=== PATIENT | male | born 1975 | race African-American/Black ===

== ENCOUNTER 2018-03-08 09:54 | Emergency (ER) | payer OTHER ==
[2018-03-08 10:16] VITALS: BP 110/72; PULSE 77; TEMP 98.4; BMI 22.6
--- NOTE | 2018-03-08 10:50 | PDOC ---
History of Present Illness - General Chief Complaint: Ear Problem Stated Complaint: EAR PROBLEM Time Seen by Provider: 03/08/18 10:04 History Source: Patient Exam Limitations: No Limitations - History of Present Illness Initial Comments: 03/08/18 10:50 Patient is here with complaints of stuffiness, and probable impaction to his right ear canal. Suffers from ceruminosis but has not used any medication or sought any attention for irrigation. Denies fever, drainage, no earache sore throat or URI symptoms. Admits to using Q-tips for ear cleaning Timing/Duration: unsure, 1 week Severity: mild, moderate Associated Symptoms: reports: denies symptoms Past History - Travel Traveled outside of the country in the last 30 days: No Close contact w/someone who was outside of country & ill: No - Past Medical History Allergies/Adverse Reactions: Allergies Allergy/AdvReac Type Severity Reaction Status Date / Time No Known Allergies Allergy Verified 03/08/18 10:00 Home Medications: Ambulatory Orders No Home Medications 0 dose .ROUTE UTDICT 06/01/13 COPD: No - Surgical History Abdominal Surgery: Yes (HERNIA) Appendectomy: Yes - Suicide/Smoking/Psychosocial Hx Smoking History: Never smoked Hx Alcohol Use: Yes (SOCIAL) Substance Use Type: None Review of Systems - Review of Systems Able to Perform ROS?: Yes Is the patient limited Tajik proficient: Yes Constitutional: Yes: See HPI. No: Symptoms Reported, Fever, Malaise HEENTM: Yes: Symptoms Reported, Ear Pain, Nose Congestion Respiratory: Yes: See HPI. No: Symptoms reported Integumentary: Yes: See HPI. No: Symptoms Reported Neurological: Yes: See HPI. No: Symptoms reported, Headache All Other Systems: Reviewed and Negative *Physical Exam - Vital Signs Last Vital Signs Temp Pulse Resp BP Pulse Ox 98.4 F 77 16 110/72 98 03/08/18 10:02 03/08/18 10:02 03/08/18 10:02 03/08/18 10:02 03/08/18 10:02 - Physical Exam General Appearance: Yes: Nourished, Appropriately Dressed. No: Apparent Distress HEENT: positive: HUMA, Normal ENT Inspection, Pharynx Normal. negative: TMs Normal (unable to visualize secondary to cerumen impaction bilateral ears, hard dark cerumen. Right side worse than left) Neck: positive: Supple. negative: Tender, Lymphadenopathy (R), Lymphadenopathy (L) Respiratory/Chest: positive: Lungs Clear, Normal Breath Sounds Gastrointestinal/Abdominal: positive: Soft *DC/Admit/Observation/Transfer Diagnosis at time of Disposition: Ceruminosis Qualifiers: Laterality: bilateral Qualified Code(s): H61.23 - Impacted cerumen, bilateral - Discharge Dispostion Disposition: HOME Condition at time of disposition: Stable Decision to Admit order: No - Referrals Referrals: Luz Elena Wiggins [Primary Care Provider] - Sami Veliz MD [Staff Physician] - - Patient Instructions Printed Discharge Instructions: DI for Cerumen Impaction Additional Instructions: Do not use Q-tips, or any other small objects on the inner aspect of the ear canal - may only use Q-tips only on the outside to clean ears Ear wax may be packed by use of Q-tips to the inner canal and become hardened May use hydrogen peroxide 3 times a week to continued keep ear wax soft and able to expel Rinse in shower after hydrogen peroxide instillation to wash ear wax out [id number] preparations also assist in wax buildup Aloe up with private physician or ear nose and throat doctor as needed - Post Discharge Activity Forms/Work/School Notes: Back to Work
== END 2018-03-08 10:58 | disposition home or self-care (01) ==
LOC: JERFT 09:54 → JER 09:54 → JERFT 10:58
DX: H61.23 Impacted cerumen, bilateral (principal)
CPT/HCPCS: 99281-25

== ENCOUNTER 2019-01-14 00:45 | Emergency (ER) | payer OTHER ==
[2019-01-14 01:40] VITALS: BP 125/77; PULSE 88; TEMP 98.2; BMI 26.6
--- NOTE | 2019-01-14 02:20 | PDOC ---
History of Present Illness - General Chief Complaint: Sore Throat Stated Complaint: SORE THROAT Time Seen by Provider: 01/14/19 01:57 History Source: Patient - History of Present Illness Initial Comments: 01/14/19 03:30 43-year-old male complaining of sore throat since last night. Denies fevers/ chills. Patient reports that he's been around small children unknown of any sick contact. Denies URI symptoms, ear pain, throat pain, chest pain, cough, neck pain, headache Past History - Past Medical History Allergies/Adverse Reactions: Allergies Allergy/AdvReac Type Severity Reaction Status Date / Time No Known Allergies Allergy Verified 01/14/19 01:40 Home Medications: Ambulatory Orders No Home Medications 0 dose .ROUTE UTDICT 06/01/13 Ibuprofen 600 mg PO QID PRN #20 tablet 01/14/19 COPD: No - Surgical History Abdominal Surgery: Yes (HERNIA) Appendectomy: Yes - Suicide/Smoking/Psychosocial Hx Smoking History: Never smoked Hx Alcohol Use: Yes Drug/Substance Use Hx: No Substance Use Type: None *Physical Exam - Vital Signs Last Vital Signs Temp Pulse Resp BP Pulse Ox 98.2 F 88 16 125/77 97 01/14/19 00:50 01/14/19 00:50 01/14/19 00:50 01/14/19 00:50 01/14/19 00:50 - Physical Exam General Appearance: Yes: Appropriately Dressed HEENT: positive: Pharyngeal Erythema Neck: negative: Lymphadenopathy (R), Lymphadenopathy (L) Respiratory/Chest: positive: Lungs Clear, Normal Breath Sounds Cardiovascular: positive: Regular Rhythm, Regular Rate Gastrointestinal/Abdominal: positive: Normal Bowel Sounds Extremity: positive: Normal Capillary Refill, Normal Inspection, Normal Range of Motion Integumentary: positive: Normal Color, Dry, Warm Neurologic: positive: Fully Oriented, Alert Medical Decision Making - Medical Decision Making 01/14/19 03:31 Pharyngitis P: rapid strep negative supportive care discussed throat culture pending *DC/Admit/Observation/Transfer Diagnosis at time of Disposition: Pharyngitis Qualifiers: Pharyngitis/tonsillitis etiology: unspecified etiology Qualified Code(s): J02.9 - Acute pharyngitis, unspecified - Discharge Dispostion Disposition: HOME Condition at time of disposition: Fair - Prescriptions Prescriptions: Ibuprofen 600 mg PO QID PRN #20 tablet PRN Reason: Pain - Referrals Referrals: Luz Elena Wiggins [Primary Care Provider] - - Patient Instructions Printed Discharge Instructions: Viral Pharyngitis Additional Instructions: Drink plenty of fluids Gargle with warm salty water Drink warm liquids Take ibuprofen every 6 hours as needed for pain or fever 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
--- NOTE | 2019-01-14 02:23 | PDOC ---
*Physical Exam - Vital Signs Last Vital Signs Temp Pulse Resp BP Pulse Ox 98.2 F 88 16 125/77 97 01/14/19 00:50 01/14/19 00:50 01/14/19 00:50 01/14/19 00:50 01/14/19 00:50 Medical Decision Making - Medical Decision Making 01/14/19 02:22 Patient seen by the advanced practice provider under my direct supervision. Ancillary testing reviewed as necessary. I agree with plan as outlined by the advanced practice provider. *DC/Admit/Observation/Transfer Diagnosis at time of Disposition: Pharyngitis Qualifiers: Pharyngitis/tonsillitis etiology: unspecified etiology Qualified Code(s): J02.9 - Acute pharyngitis, unspecified - Discharge Dispostion Disposition: HOME Condition at time of disposition: Fair - Prescriptions Prescriptions: Ibuprofen 600 mg PO QID PRN #20 tablet PRN Reason: Pain - Referrals Referrals: Luz Elena Wiggins [Primary Care Provider] - - Patient Instructions Printed Discharge Instructions: Viral Pharyngitis Additional Instructions: Drink plenty of fluids Gargle with warm salty water Drink warm liquids Take ibuprofen every 6 hours as needed for pain or fever 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
[2019-01-14] MEDS ORDERED: IBUPROFEN 600 MG TABLET (FP) PO ONE ×2 (02:30→02:40)
== END 2019-01-14 04:04 | disposition home or self-care (01) ==
LOC: JER 00:45
DX: J02.9 Acute pharyngitis, unspecified (principal)
CPT/HCPCS: 87070; 87880; 99281-25

== ENCOUNTER 2024-03-14 09:33 | Emergency (ER) | payer OTHER ==
[2024-03-14 09:37] VITALS: BP 141/94; PULSE 80; RESP 20; TEMP 98.4; BMI 29.0
== END 2024-03-14 10:47 | disposition home or self-care (01) ==
LOC: JERFT 09:33
DX: H61.23 Impacted cerumen, bilateral (principal)
CPT/HCPCS: 99283-25